=== PATIENT | female | born 1955 | race Caucasian/White ===

== ENCOUNTER → 2024-06-25 09:35 | Outpatient (REF) | payer OTHER, SELFPAY | LOC: RAD 09:35 | PROVIDERS: ATTENDING PHYSICIAN Physician Assistant | DX: Z13.820 Encounter for screening for osteoporosis (principal); Z87.81 Personal history of (healed) traumatic fracture; Z78.0 Asymptomatic menopausal state | CPT/HCPCS: 77080 ==